=== PATIENT | female | born 1930 | race Caucasian/White ===

== ENCOUNTER 2019-01-28 14:50 | Emergency (ER) | payer OTHER ==
--- NOTE | 2019-01-28 16:02 | RAD REPORT ---
EXAM DESCRIPTION: RAD - Hip Left 2 View - 01/28/2019 3:52 pm CLINICAL HISTORY: Left hip pain FINDINGS: No fracture or dislocation is seen. Osteoporosis. 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
--- NOTE | 2019-01-28 16:07 | ER ---
Nurse's Notes [facility] Name: Talita Dean Age: 88 yrs Sex: Female : 1930 Arrival Date: 01/28/2019 Time: 14:52 Bed 20 Private MD: Diagnosis: Pain in left hip Presentation: 01/28 14:57 Presenting complaint: Patient states: Left hip pain after using push mower while mowing aj her yard 1 week ago. Also reports right hip pain after fall from standing after tripping. Transition of care: patient was not received from another setting of care. Onset of symptoms was January 22, 2019. Risk Assessment: Do you want to hurt yourself or someone else? Patient reports no desire to harm self or others. Initial Sepsis Screen: Does the patient meet any 2 criteria? No. Patient's initial sepsis screen is negative. Does the patient have a suspected source of infection? No. Patient's initial sepsis screen is negative. Care prior to arrival: None. 14:57 Method Of Arrival: Ambulatory 14:57 Acuity: ANNABEL 4 aj Triage Assessment: 14:59 General: Appears in no apparent distress. comfortable, Behavior is calm, cooperative, aj appropriate for age. Pain: Complains of pain in left hip. Neuro: Level of Consciousness is awake, alert, obeys commands, Oriented to person, place, time, situation, Appropriate for age. Respiratory: Airway is patent Respiratory effort is even, unlabored, Respiratory pattern is regular, symmetrical. Derm: Skin is intact, is healthy with good turgor, Skin is pink, warm \T\ dry. normal. Musculoskeletal: Reports pain in left hip. Historical: - Allergies: 14:59 No Known Allergies; aj - Immunization history:: Adult Immunizations up to date. - Social history:: Smoking status: Patient/guardian denies using tobacco. - Ebola Screening: : No symptoms or risks identified at this time. Screenin:15 Abuse screen: Denies threats or abuse. Denies injuries from another. Nutritional hb screening: No deficits noted. Tuberculosis screening: No symptoms or risk factors identified. Fall Risk None identified. Assessment: 15:15 General: Appears in no apparent distress. Behavior is calm, cooperative. Pain: Pain hb currently is 5 out of 10 on a pain scale. Neuro: Level of Consciousness is awake, alert, obeys commands, Oriented to person, place, time, situation. Cardiovascular: Capillary refill < 3 seconds Patient's skin is warm and dry. Respiratory: Airway is patent Respiratory effort is even, unlabored, Respiratory pattern is regular, symmetrical. GI: No signs and/or symptoms were reported involving the gastrointestinal system. : No signs and/or symptoms were reported regarding the genitourinary system. EENT: No signs and/or symptoms were reported regarding the EENT system. Derm: Skin is intact, is healthy with good turgor. Musculoskeletal: Reports left hip pain. Vital Signs: 14:59 BP 105 / 63; Pulse 85; Resp 19; Temp 98.8; Pulse Ox 98% on R/A; Weight 61.23 kg; Height aj 4 ft. 11 in. (149.86 cm); 14:59 Body Mass Index 27.27 (61.23 kg, 149.86 cm) aj ED Course: 14:52 Patient arrived in ED. as 14:59 Triage completed. aj 14:59 Arm band placed on right wrist. Patient placed in an exam room. aj 15:02 Elsa Barron FNP-C is PHCP. kb 15:02 Fortino Shrestha MD is Attending Physician. kb 15:15 Patient has correct armband on for positive identification. Bed in low position. Call hb light in reach. 15:22 Idania Renee, RN is Primary Nurse. hb 15:52 Hip Left 2 View XRAY In Process Unspecified. EDMS 16:15 No provider procedures requiring assistance completed. Patient did not have IV access hb during this emergency room visit. Administered Medications: No medications were administered Outcome: 16:06 Discharge ordered by . kb 16:15 Discharged to home ambulatory. hb 16:15 Condition: stable 16:15 Discharge instructions given to patient, Instructed on discharge instructions, follow up and referral plans. medication usage, Demonstrated understanding of instructions, follow-up care, medications, Prescriptions given X 1. 16:15 Patient left the ED. hb Signatures: Dispatcher [employer] EDMS Elsa Barron FNP-C FNP-Ckb Myers, Amanda, RN RN aj Martinez, Amelia as Idania Renee RN RN hb
--- NOTE | 2019-01-28 16:07 | EDPHYS ---
Physician Documentation [facility] Name: Talita Dean Age: 88 yrs Sex: Female : 1930 Arrival Date: 01/28/2019 Time: 14:52 Bed 20 Private MD: ED Physician Fortino Shrestha HPI: 01/28 15:18 This 88 yrs old Female presents to ER via Ambulatory with complaints of Hip kb Pain. 15:18 The patient or guardian reports pain. that occurred outdoors, sustained from "pulling a kb mower" There is no obvious deformity, The patient is able to self ambulate. The patient is able to bear their full body weight. The complaints affect the left hip. Onset: The symptoms/episode began/occurred 1 week(s) ago. Modifying factors: The symptoms are alleviated by nothing, the symptoms are aggravated by weight bearing. Associated signs and symptoms: Loss of consciousness: the patient experienced no loss of consciousness, Pertinent positives: None. Severity of symptoms: At their worst the symptoms were moderate, in the emergency department the symptoms are unchanged. The patient has not experienced similar symptoms in the past. The patient has not recently seen a physician. Pt reports left hip pain for a week after pulling on a heavy mower. States she has been able to walk, but has pain to posterior left hip. Historical: - Allergies: 14:59 No Known Allergies; aj - Immunization history:: Adult Immunizations up to date. - Social history:: Smoking status: Patient/guardian denies using tobacco. - Ebola Screening: : No symptoms or risks identified at this time. ROS: 15:16 Constitutional: Negative for fever, chills, and weight loss, Cardiovascular: Negative kb for chest pain, palpitations, and edema, Respiratory: Negative for shortness of breath, cough, wheezing, and pleuritic chest pain, Abdomen/GI: Negative for abdominal pain, nausea, vomiting, diarrhea, and constipation, Back: Negative for injury and pain, : Negative for injury, bleeding, discharge, and swelling, Skin: Negative for injury, rash, and discoloration, Neuro: Negative for headache, weakness, numbness, tingling, and seizure. 15:16 MS/extremity: Positive for pain, of the left hip. Exam: 15:16 Constitutional: This is a well developed, well nourished patient who is awake, alert, kb and in no acute distress. Head/Face: Normocephalic, atraumatic. Neck: Trachea midline, no thyromegaly or masses palpated, and no cervical lymphadenopathy. Supple, full range of motion without nuchal rigidity, or vertebral point tenderness. No Meningismus. Chest/axilla: Normal chest wall appearance and motion. Nontender with no deformity. No lesions are appreciated. Cardiovascular: Regular rate and rhythm with a normal S1 and S2. No gallops, murmurs, or rubs. Normal PMI, no JVD. No pulse deficits. Respiratory: Lungs have equal breath sounds bilaterally, clear to auscultation and percussion. No rales, rhonchi or wheezes noted. No increased work of breathing, no retractions or nasal flaring. Abdomen/GI: Soft, non-tender, with normal bowel sounds. No distension or tympany. No guarding or rebound. No evidence of tenderness throughout. Back: No spinal tenderness. No costovertebral tenderness. Full range of motion. Skin: Warm, dry with normal turgor. Normal color with no rashes, no lesions, and no evidence of cellulitis. Neuro: Awake and alert, GCS 15, oriented to person, place, time, and situation. Cranial nerves II-XII grossly intact. Motor strength 5/5 in all extremities. Sensory grossly intact. Cerebellar exam normal. Normal gait. 15:16 Musculoskeletal/extremity: Extremities: grossly normal except: noted in the left hip: pain, tenderness, ROM: intact in all extremities, Circulation is intact in all extremities. Sensation intact. Weight bearing: able to fully bear weight. Vital Signs: 14:59 BP 105 / 63; Pulse 85; Resp 19; Temp 98.8; Pulse Ox 98% on R/A; Weight 61.23 kg; Height aj 4 ft. 11 in. (149.86 cm); 14:59 Body Mass Index 27.27 (61.23 kg, 149.86 cm) aj MDM: 15:02 Patient medically screened. kb 15:16 Data reviewed: vital signs, nurses notes. Data interpreted: Pulse oximetry: on room air kb is 98 %. Interpretation: normal. Counseling: I had a detailed discussion with the patient and/or guardian regarding: the historical points, exam findings, and any diagnostic results supporting the discharge/admit diagnosis, radiology results, the need for outpatient follow up, a orthopedic surgeon, to return to the emergency department if symptoms worsen or persist or if there are any questions or concerns that arise at home. 01/28 15:10 Order name: Hip Left 2 View XRAY; Complete Time: 16:05 kb Administered Medications: No medications were administered Disposition: 01/29 09:11 Co-signature as Attending Physician, Fortino Shrestha MD I agree with the assessment and maral plan of care. Disposition: 01/28/19 16:06 Discharged to Home. Impression: Pain in left hip. - Condition is Stable. - Discharge Instructions: Hip Pain. - Prescriptions for Cyclobenzaprine 10 mg Oral Tablet - take 1 tablet by ORAL route every 8 hours As needed; 21 tablet. - Medication Reconciliation Form, Thank You Letter, Antibiotic Education, Prescription Opioid Use form. - Follow up: Emergency Department; When: As needed; Reason: Worsening of condition. Follow up: Private Physician; When: 2 - 3 days; Reason: Recheck today's complaints, Continuance of care, Re-evaluation by your physician. Signatures: Dispatcher [employer] EDElsa Corea, SECURITY DELIVERY SPECIALIST-C SECURITY DELIVERY SPECIALIST-CkMilly Lira, RN RN Fortino Smith MD MD cha Baxter, Heather, RN RN hb Corrections: (The following items were deleted from the chart) 01/28 16:15 16:06 01/28/2019 16:06 Discharged to Home. Impression: Pain in left hip. Condition is hb Stable. Forms are Medication Reconciliation Form, Thank You Letter, Antibiotic Education, Prescription Opioid Use. Follow up: Emergency Department; When: As needed; Reason: Worsening of condition. Follow up: Private Physician; When: 2 - 3 days; Reason: Recheck today's complaints, Continuance of care, Re-evaluation by your physician. kb
== END 2019-01-28 16:15 | disposition home or self-care (01) ==
LOC: ER 14:50
DX: M25.552 Pain in left hip (principal)
CPT/HCPCS: 99283

== ENCOUNTER 2019-05-24 10:37 | Emergency (ER) | payer OTHER ==
--- OUTSIDE RECORDS SUMMARY | 2019-05-24 10:39 | XMS REPORT ---
:1930 [facility] Address [address] [place] [address] [address] [place] [address] Care Team Providers Name Role Phone Unavailable Unavailable Unavailable Payers Payer Name Policy Type Policy Number Effective Date Expiration Date Problems This patient has no known problems. Allergies, Adverse Reactions, Alerts Allergy Allergy Status Severity Reaction(s) Onset Inactive Treating Comments Name Type Date Date Clinician No Known DA Active U 2018-05 Allergies -20 00:00:0 0 Medications This patient has no known medications.
--- OUTSIDE RECORDS SUMMARY | 2019-05-24 10:40 | XMS REPORT | Summary of Care ---
:1930 Author Organization [facility] Address [address] [place] [id number] Care Team Providers Name Role Phone Matt Glover MD Primary Care Provider Reason for Visit Reason Comments Insect Bite Dizziness light headed Encounter Details Date Type Department Care Team Description 02/09/2019 Office Visit [facility] Pediatric Matt Glover III, Essential hypertension (Primary Dx); and Adult Primary MD Insect bite, initial encounter; [address] History of myocardial infarction [address] [place] [address] , [address] [place] [address] [place] [phone] [id number] [phone] Allergies No Known Allergiesdocumented as of this encounter (statuses as of 02/09/2019) Medications Medication Sig Dispensed Refills Start End Date Status Date cyclobenzaprine 10 mg Take 1 0 Active tablet tablet by 9 mouth. irbesartan 300 mg tablet Take 1 30 tablet 11 Active tablet by 9 mouth daily. hydroCHLOROthiazide 12.5 Take 1 39 capsule 11 Active mg capsule capsule by 9 mouth daily. irbesartan 300 mg tablet Take 1 11 02/10/20 Discontinued tablet by 9 19 mouth daily. documented as of this encounter (statuses as of 02/09/2019) Active Problems Problem Noted Date Essential hypertension 02/09/2019 History of myocardial infarction 02/09/2019 documented as of this encounter (statuses as of 02/09/2019) Social History Tobacco Use Types Packs/Day Years Used Date Never Assessed Sex Assigned at Date Recorded Not on file Job Start Date Occupation Industry Not on file Not on file Not on file Travel History Travel Start Travel End No recent travel history available. documented as of this encounter Last Filed Vital Signs Vital Sign Reading Time Taken Comments Blood Pressure 163/85 02/09/2019 10:40 AM CDT Pulse 53 02/09/2019 10:39 AM CDT Temperature 36.2 C (97.2 F) 02/09/2019 10:39 AM CDT Respiratory Rate 18 02/09/2019 10:39 AM CDT Oxygen Saturation 99% 02/09/2019 10:39 AM CDT Inhaled Oxygen Concentration - - Weight 59.1 kg (130 lb 3.2 oz) 02/09/2019 10:39 AM CDT Height - - Body Mass Index - - documented in this encounter Progress Notes Matt Glover III, MD - 02/09/2019 10:00 AM CDT Cc: Chief Complaint Patient presents with Insect Bite Dizziness light headed Talita Dean is a 89 year old female. Rash Location: Leg Leg rash location: R leg and L leg Quality: itchiness and redness Severity: Moderate Onset quality: Sudden Duration: 1 day Timing: Constant Progression: Unchanged Chronicity: New Context comment: Dogs have been in her house Associated symptoms: no fever, no headaches and no joint pain Allergies Talita has No Known Allergies. Medications Outpatient Medications Prior to Visit Medication Sig Dispense Refill cyclobenzaprine 10 mg tablet Take 1 tablet by mouth. 0 irbesartan 300 mg tablet Take 1 tablet by mouth daily. 11 No facility-administered medications prior to visit. Histories History reviewed. No pertinent past medical history. History reviewed. No pertinent surgical history. Social History Socioeconomic History Marital status: Spouse name: Not on file Number of children: Not on file Years of education: Not on file Highest education level: Not on file Occupational History Not on file Social Needs Financial resource strain: Not on file Food insecurity: Worry: Not on file Inability: Not on file Transportation needs: Medical: Not on file Non-medical: Not on file Tobacco Use Smoking status: Not on file Substance and Sexual Activity Alcohol use: Not on file Drug use: Not on file Sexual activity: Not on file Lifestyle Physical activity: Days per week: Not on file Minutes per session: Not on file Stress: Not on file Relationships Social connections: Talks on phone: Not on file Gets together: Not on file Attends cheondoism service: Not on file Active member of club or organization: Not on file Attends meetings of clubs or organizations: Not on file Relationship status: Not on file Intimate partner violence: Fear of current or ex partner: Not on file Emotionally abused: Not on file Physically abused: Not on file Forced sexual activity: Not on file Other Topics Concern Not on file Social History Narrative Not on file History reviewed. No pertinent family history. Review of Systems Constitutional: Negative for fever. HENT: Negative for congestion. Respiratory: Negative for cough. Cardiovascular: Negative for leg swelling. Musculoskeletal: Negative for arthralgias. Skin: Positive for rash. Neurological: Negative for headaches. Psychiatric/Behavioral: Negative for dysphoric mood. Hematological: Negative for adenopathy. Does not bruise/bleed easily. Vital Signs BP (!) 163/85 | Pulse 53 | Temp 36.2 C (97.2 F) (Oral) | Resp 18 | Wt 130 lb 3.2 oz (59.1 kg) | SpO2 99% Physical Exam Constitutional: She appears well-nourished. No distress. Elderly female HENT: Head: Normocephalic. Mouth/Throat: Oropharynx is clear and moist. Eyes: Pupils are equal, round, and reactive to light. Cardiovascular: Normal rate. Pulmonary/Chest: Effort normal. Musculoskeletal: She exhibits no edema. Neurological: She is alert. Skin: Skin is dry. The back of both legs covered in small erythematous papules, not blistered, some in rows Psychiatric: She has a normal mood and affect. Vitals reviewed. Assessment/Plan 1. Essential hypertension, add hctz 2. Insect bite, initial encounter, no Rx Needed but needs pest control ,could be bed bugs, recheckif rash does not resolve 3. History of myocardial infarction, takes 81 mg asa documented in this encounter Plan of Treatment Health Maintenance Due Date Last Done Comments DTaP,Tdap,and Td Vaccines (1 - Tdap) 02/03/1951 Zoster Recombinant Vaccine (SHINGRIX) (1 of 2) 02/03/1982 Medicare Wellness Visit 02/03/1997 Osteoporosis Screening 02/03/1997 PNEUMOCOCCAL VACCINES 65+ (1 of 2 - PCV13) 02/03/1997 INFLUENZA VACCINE (#1) 2019 documented as of this encounter Results Not on filedocumented in this encounter Visit Diagnoses Diagnosis Essential hypertension - Primary Unspecified essential hypertension Insect bite, initial encounter History of myocardial infarction Old myocardial infarction documented in this encounter Insurance Payer Benefit Plan / Subscriber ID Effective Dates Phone Address Type Group JUDY KELLOGG [id number] 2018-Presen Medicare Adv PLUS PLUS CHOICE t HMO/POS documented as of this encounter"
--- OUTSIDE RECORDS SUMMARY | 2019-05-24 10:40 | XMS REPORT | Summary of Care ---
:1930 Author Organization [facility] Address [address] [place] [address] Care Team Providers Name Role Phone Matt Glover MD Primary Care Provider Reason for Visit Reason Comments Insect Bite Dizziness light headed Encounter Details Date Type Department Care Team Description 02/09/2019 Office Visit [facility] Pediatric Matt Glover III, Essential hypertension (Primary Dx); and Adult Primary MD Insect bite, initial encounter; [address] History of myocardial infarction [address] [place] [address] , [address] [place] [address] [place] [phone] Allergies No Known Allergiesdocumented as of this [...] file Gets together: Not on file Attends protestant service: Not on file Active member of [...] Dates Phone Address Type Group JUDY KELLOGG [id number] 2018-Presen Medicare Adv PLUS PLUS CHOICE t HMO/POS documented as of this encounter"
--- OUTSIDE RECORDS SUMMARY | 2019-05-24 10:40 | XMS REPORT | Summary of Care ---
:1930 Author Name COLIN LAM M.D. Address Unavailable Unavailable , Care Team Providers Name Role Phone COLIN LAM M.D. 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 Medications Name Dates Details Medications not documented Allergies and Adverse Reactions Name Dates Details Allergy history not documented Status: Procedures Procedure Dates Details Procedures not documented Immunization Name Dates Details Immunizations not documented Social History Name Dates Details Unknown if ever smoked Vital Signs Date Test Result Details No Known Vitals to report Results Date Description Value Details Results not documented Plan of Care Name Dates Details Planned Observations Planned Goals not documented Interventions Provided Plan88 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 On: 20-Aug-2018 13:30 Encounter Diagnosis: Problem not documented
[2019-05-24 12:02] LABS: Absolute Lymphocytes (CBC) 0.8 K/uL (0.7-4.9); Basophils % 1.1 % (0-1.3); Hematocrit 40.7 % (36.0-45.0); Lymphocytes % 23.2 % (15.3-44.8); RBC Red Blood Cell Count 4.31 M/uL (3.86-4.86)
[2019-05-24 12:03] LABS: Protime INR 1.02
[2019-05-24 12:16] LABS: Albumin 3.4 g/dL (3.4-5.0); Bilirubin Direct 0.2 mg/dL (0-0.2); Bilirubin Total 0.8 mg/dL (0.2-1.0); Potassium 4.1 mmol/L (3.5-5.1); Protein, Total 7.2 g/dL (6.4-8.2)
--- NOTE | 2019-05-24 12:42 | RAD REPORT ---
EXAM DESCRIPTION: CTAbdomen Pelvis W Contrast - 05/24/2019 12:32 pm CLINICAL HISTORY: Abdominal pain. GI BLEED COMPARISON: No comparisons TECHNIQUE: Biphasic CT imaging of the abdomen and pelvis was performed with 100 ml non-ionic IV cont rast. All CT scans are performed using dose optimization technique as appropriate and may include automated exposure control or mA/KV adjustment according to patient size. FINDINGS: Small calcified granuloma is present right lung base anteriorly. The liver demonstrates no masses or biliary dilatation. Cholelithiasis. The spleen pancreas, adrenal glands are normal. Large left renal cyst measuring 5.6 cm. 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 No bowel obstruction, free air, free fluid or abscess. Sigmoid diverticulosis without diverticulitis. Appendectomy. Aortic atherosclerosis. No evidence of significant lymphadenopathy. No lumbar degenerative changes. IMPRESSION: Cholelithiasis.
--- NOTE | 2019-05-24 14:51 | EDPHYS ---
Physician Documentation [facility] Name: Talita Dean Age: 89 yrs Sex: Female : 1930 Arrival Date: 05/24/2019 Time: 10:39 Bed 6 Private MD: ED Physician Bolivar Palacios HPI: 05/24 11:35 This 89 yrs old Female presents to ER via Ambulatory with complaints of pm1 Black/Tarry Stools, Cold Symptoms, Took Heartworm Medication. 11:35 The patient presents to the emergency department black stool. Cough on and off for the pm1 past three months. Accidentally took two pills of Black Plaquemine supplement that she gives to her dog for heart worm this AM. Onset: The symptoms/episode began/occurred Black stool for 3 days. Abdominal pain: none is appreciated. Modifying factors: The symptoms are alleviated by nothing, the symptoms are aggravated by nothing. Associated signs and symptoms: Pertinent negatives: chest pain, constipation, dizziness at rest, dizziness when standing, fever, shortness of breath, vomiting. The patient has not experienced similar symptoms in the past. The patient has not recently seen a physician. Historical: - Allergies: 11:00 No Known Allergies; aj1 - Home Meds: 12:08 irbesartan 300 mg oral tab 1 tab once daily [Active]; Aspirin Childrens 81 mg oral chew ca1 1 tab once daily [Active]; - PMHx: 11:00 Myocardial infarction; Hypertension; aj1 - Immunization history:: Flu vaccine is not up to date. - Social history:: Smoking status: Patient/guardian denies using tobacco. - Ebola Screening: : Patient denies travel to an Ebola-affected area in the 21 days before illness onset. ROS: 11:35 Constitutional: Negative for fever, chills, and weight loss, Eyes: Negative for injury, pm1 pain, redness, and discharge, ENT: Negative for injury, pain, and discharge, Neck: Negative for injury, pain, and swelling, Cardiovascular: Negative for chest pain, palpitations, and edema. 11:35 Back: Negative for injury and pain, : Negative for injury, bleeding, discharge, and swelling, MS/Extremity: Negative for injury and deformity, Skin: Negative for injury, rash, and discoloration, Neuro: Negative for headache, weakness, numbness, tingling, and seizure. 11:35 Respiratory: Positive for cough, Negative for shortness of breath, sputum production, wheezing. 11:35 Abdomen/GI: Positive for diarrhea, black/tarry stool, Negative for abdominal pain, nausea and vomiting, constipation. Exam: 12:50 Constitutional: This is a well developed, well nourished patient who is awake, alert, pm1 and in no acute distress. Head/Face: Normocephalic, atraumatic. Eyes: Pupils equal round and reactive to light, extra-ocular motions intact. Lids and lashes normal. Conjunctiva and sclera are non-icteric and not injected. Cornea within normal limits. Periorbital areas with no swelling, redness, or edema. ENT: Nares patent. No nasal discharge, no septal abnormalities noted. Tympanic membranes are normal and external auditory canals are clear. Oropharynx with no redness, swelling, or masses, exudates, or evidence of obstruction, uvula midline. Mucous membranes moist. Neck: Trachea midline, no thyromegaly or masses palpated, and no cervical lymphadenopathy. Supple, full range of motion without nuchal rigidity, or vertebral point tenderness. No Meningismus. Chest/axilla: Normal chest wall appearance and motion. Nontender with no deformity. No lesions are appreciated. Cardiovascular: Regular rate and rhythm with a normal S1 and S2. No gallops, murmurs, or rubs. No pulse deficits. Respiratory: Lungs have equal breath sounds bilaterally, clear to auscultation and percussion. No rales, rhonchi or wheezes noted. No increased work of breathing, no retractions or nasal flaring. 12:50 Back: No spinal tenderness. No costovertebral tenderness. Full range of motion. Skin: Warm, dry with normal turgor. Normal color with no rashes, no lesions, and no evidence of cellulitis. 12:50 MS/ Extremity: Pulses equal, no cyanosis. Neurovascular intact. Full, normal range of motion. 12:50 Abdomen/GI: Inspection: abdomen appears normal, Bowel sounds: normal, Palpation: abdomen is soft and non-tender, in all quadrants, mass, is not appreciated, rebound tenderness, is not appreciated, Rectal exam: rectal tone normal, Stool: brown, guaiac negative, hemorrhoid(s), are not appreciated, tenderness, is not appreciated, Irrigation Equipment Remover: Wlila LANG. 12:50 Neuro: Orientation: is normal, Motor: is normal, moves all fours, Gait: is steady, at a normal pace, without difficulty. Vital Signs: 11:00 BP 161 / 79; Pulse 76; Resp 18; Temp 97.9; Pulse Ox 97% on R/A; Weight 61.23 kg (R); aj1 Height 4 ft. 11 in. (149.86 cm) (R); Pain 3/10; 11:55 BP 167 / 72; Pulse 67; Resp 16 S; Pulse Ox 97% on R/A; ca1 13:05 BP 164 / 101; Pulse 73; Resp 17 S; Pulse Ox 98% on R/A; ca1 13:23 BP 137 / 81; Pulse 68; Resp 15 S; Pulse Ox 98% on R/A; ca1 14:37 BP 172 / 74; Pulse 71; Resp 17 S; Pulse Ox 98% on R/A; ca1 11:00 Body Mass Index 27.27 (61.23 kg, 149.86 cm) aj1 MDM: 11:32 Patient medically screened. pm1 14:48 Data reviewed: vital signs. Data interpreted: Pulse oximetry: on room air is 98 %. pm1 Interpretation: normal. Counseling: I had a detailed discussion with the patient and/or guardian regarding: the historical points, exam findings, and any diagnostic results supporting the discharge/admit diagnosis, lab results, radiology results, the need for outpatient follow up, to return to the emergency department if symptoms worsen or persist or if there are any questions or concerns that arise at home. 14:48 ED course: Patient without any bowel movement in the ER. Stool guaiac negative in the pm1 ER. Patient v/s and CBC WNLs. No GI bleed present therefore will discharge the patient home to follow up with PCP. 05/24 11:33 Order name: Basic Metabolic Panel; Complete Time: 12:50 pm1 05/24 11:33 Order name: CBC with Diff; Complete Time: 12:50 pm1 05/24 11:33 Order name: Creatinine for Radiology; Complete Time: 12:50 pm1 05/24 11:33 Order name: Hepatic Function; Complete Time: 12:50 pm1 05/24 11:33 Order name: Lipase; Complete Time: 12:50 pm1 05/24 11:33 Order name: Type And Screen; Complete Time: 12:50 pm1 05/24 11:33 Order name: IV Saline Lock; Complete Time: 11:52 pm1 05/24 11:33 Order name: Labs collected and sent; Complete Time: 11:52 pm1 12 11:33 Order name: PT-INR; Complete Time: 12:50 pm1 05/24 11:33 Order name: CT Abd/Pelvis - IV Contrast Only; Complete Time: 12:50 pm1 05/24 12:15 Order name: Occult Blood--Ancillary; Complete Time: 12:50 eb Administered Medications: No medications were administered Disposition: 17:50 Co-signature as Attending Physician, Bolivar Palacios MD Did not see or evaluate the ps1 patient. Signing the chart for administrative purposes. Not an endorsement of care provided. . Disposition: 05/24/19 14:50 Discharged to Home. Impression: Intra-abdominal and pelvic swelling, mass and lump, unspecified site - Right kidney, Acute upper respiratory infection, unspecified, Diarrhea, unspecified. - Condition is Stable. - Discharge Instructions: Food Choices to Help Relieve Diarrhea, Adult, Diarrhea, Adult, Upper Respiratory Infection, Adult. - Prescriptions for Tessalon Perles 100 mg Oral Capsule - take 1 capsule by ORAL route every 8 hours As needed; 15 capsule. - Medication Reconciliation Form, Thank You Letter, Antibiotic Education, Prescription Opioid Use form. - Follow up: Emergency Department; When: As needed; Reason: Worsening of condition. Follow up: Private Physician; When: 2 - 3 days; Reason: Recheck today's complaints, Continuance of care, Re-evaluation by your physician. - Problem is new. - Symptoms have improved. Signatures: Dispatcher [employer] Carito Choudhary RN RN aj1 Scott Kim, PUBLIC HEALTH SANITARIAN PUBLIC HEALTH SANITARIAN pm1 Bolivar Palacios MD MD ps1 Willa Betancourt RN RN ca1 Corrections: (The following items were deleted from the chart) 14:51 14:50 05/24/2019 14:50 Discharged to Home. Impression: Intra-abdominal and pelvic pm1 swelling, mass and lump, unspecified site - Right kidneyAcute upper respiratory infection, unspecified. Condition is Stable. Forms are Medication Reconciliation Form, Thank You Letter, Antibiotic Education, Prescription Opioid Use. Follow up: Emergency Department; When: As needed; Reason: Worsening of condition. Follow up: Private Physician; When: 2 - 3 days; Reason: Recheck today's complaints, Continuance of care, Re-evaluation by your physician. Problem is new. Symptoms have improved. pm1 15:04 14:51 05/24/2019 14:50 Discharged to Home. Impression: Intra-abdominal and pelvic ca1 swelling, mass and lump, unspecified site - Right kidneyAcute upper respiratory infection, unspecified; Diarrhea, unspecified. Condition is Stable. Forms are Medication Reconciliation Form, Thank You Letter, Antibiotic Education, Prescription Opioid Use. Follow up: Emergency Department; When: As needed; Reason: Worsening of condition. Follow up: Private Physician; When: 2 - 3 days; Reason: Recheck today's complaints, Continuance of care, Re-evaluation by your physician. Problem is new. Symptoms have improved. pm1
--- NOTE | 2019-05-24 14:51 | ER ---
Nurse's Notes [facility] Name: Talita Dean Age: 89 yrs Sex: Female : 1930 Arrival Date: 05/24/2019 Time: 10:39 Bed 6 Private MD: Diagnosis: Acute upper respiratory infection, unspecified;Intra-abdominal and pelvic swelling, mass and lump, unspecified site-Right kidney;Diarrhea, unspecified Presentation: 05/24 10:57 Presenting complaint: Patient states: "I've been sick on and off for 2 to 3 months, I aj1 got a cold and yesterday I shit black goo, and last night there was more black stool. When I wake up in the morning I'm kind of dizzy, last night I accidentally took my dog's medicine" Patient also reports cough, congestion, fever. Transition of care: patient was not received from another setting of care. Onset of symptoms was 2018. Risk Assessment: Do you want to hurt yourself or someone else? Patient reports no desire to harm self or others. Initial Sepsis Screen: Does the patient meet any 2 criteria? No. Patient's initial sepsis screen is negative. Does the patient have a suspected source of infection? No. Patient's initial sepsis screen is negative. Care prior to arrival: None. 10:57 Method Of Arrival: Ambulatory aj1 10:57 Acuity: ANNABEL 3 aj1 Triage Assessment: 11:00 General: Appears in no apparent distress. comfortable, Behavior is calm, cooperative, aj1 appropriate for age. Pain: Pain currently is 3 out of 10 on a pain scale. Neuro: Level of Consciousness is awake, alert, obeys commands. Cardiovascular: Patient's skin is warm and dry. Respiratory: Airway is patent Respiratory effort is even, unlabored, Respiratory pattern is regular, symmetrical. Historical: - Allergies: 11:00 No Known Allergies; aj1 - Home Meds: 12:08 irbesartan 300 mg oral tab 1 tab once daily [Active]; Aspirin Childrens 81 mg oral chew ca1 1 tab once daily [Active]; - PMHx: 11:00 Myocardial infarction; Hypertension; aj1 - Immunization history:: Flu vaccine is not up to date. - Social history:: Smoking status: Patient/guardian denies using tobacco. - Ebola Screening: : Patient denies travel to an Ebola-affected area in the 21 days before illness onset. Screenin:10 Abuse screen: Denies threats or abuse. Denies injuries from another. Nutritional ca1 screening: No deficits noted. Tuberculosis screening: No symptoms or risk factors identified. Fall Risk IV access (20 points). Assessment: 11:10 General: Appears in no apparent distress. comfortable, Behavior is calm, cooperative, ca1 appropriate for age. Pain: Denies pain. Neuro: Level of Consciousness is awake, alert, obeys commands, Oriented to person, place, time, situation. Cardiovascular: Heart tones S1 S2 present Capillary refill < 3 seconds Patient's skin is warm and dry. Pulses are all present. Respiratory: Airway is patent Respiratory effort is even, unlabored, Respiratory pattern is regular, symmetrical, Breath sounds are clear bilaterally. GI: Abdomen is flat, non-distended, Bowel sounds present X 4 quads. Abd is soft and non tender X 4 quads. Reports diarrhea, since yesterday black stools since 2 days ago. : No deficits noted. No signs and/or symptoms were reported regarding the genitourinary system. EENT: No deficits noted. No signs and/or symptoms were reported regarding the EENT system. Derm: Skin is intact, is healthy with good turgor, Skin is pink, warm \\T\\ dry. Musculoskeletal: Circulation, motion, and sensation intact. Capillary refill < 3 seconds, Range of motion: intact in all extremities. 11:55 Reassessment: Patient appears in no apparent distress at this time. Patient and/or ca1 family updated on plan of care and expected duration. Pain level reassessed. Patient is alert, oriented x 3, equal unlabored respirations, skin warm/dry/pink. 12:04 Reassessment: Called Poison Control. Spoke to Paul from [facility]. No interaction between Black [place] and Irbesartan. Black walnut may cause sensitivity to pt, other than that no possible adverse effects to ingestion. Notified provider. 13:01 Reassessment: Patient appears in no apparent distress at this time. Patient is alert, ca1 oriented x 3, equal unlabored respirations, skin warm/dry/pink. 14:00 Reassessment: Patient appears in no apparent distress at this time. Patient is alert, ca1 oriented x 3, equal unlabored respirations, skin warm/dry/pink. 15:00 Reassessment: Patient appears in no apparent distress at this time. Patient is alert, ca1 oriented x 3, equal unlabored respirations, skin warm/dry/pink. Vital Signs: 11:00 BP 161 / 79; Pulse 76; Resp 18; Temp 97.9; Pulse Ox 97% on R/A; Weight 61.23 kg (R); aj1 Height 4 ft. 11 in. (149.86 cm) (R); Pain 3/10; 11:55 BP 167 / 72; Pulse 67; Resp 16 S; Pulse Ox 97% on R/A; ca1 13:05 BP 164 / 101; Pulse 73; Resp 17 S; Pulse Ox 98% on R/A; ca1 13:23 BP 137 / 81; Pulse 68; Resp 15 S; Pulse Ox 98% on R/A; ca1 14:37 BP 172 / 74; Pulse 71; Resp 17 S; Pulse Ox 98% on R/A; ca1 11:00 Body Mass Index 27.27 (61.23 kg, 149.86 cm) aj ED Course: 10:39 Patient arrived in ED. as 11:00 Triage completed. aj1 11:00 Arm band placed on Patient placed in an exam room. aj1 11:06 Willa Betancourt, RICKEY is Primary Nurse. ca1 11:08 Scott Kim NP is PHCP. pm1 11:08 Bolivar Palacios MD is Attending Physician. pm1 11:10 Patient has correct armband on for positive identification. Placed in gown. Bed in low ca1 position. Call light in reach. Side rails up X 1. Pulse ox on. NIBP on. Warm blanket given. 11:40 Radiology exam delayed due to lab results not completed at this time. (BUN/Creatinine). mw3 11:48 No provider procedures requiring assistance completed. Initial lab(s) drawn, by tx, ca1 sent to lab. Inserted saline lock: 20 gauge in right antecubital area, using aseptic technique. Blood collected. 12:32 CT completed. Patient tolerated procedure well. Patient moved back from CT. mi 12:32 CT Abd/Pelvis - IV Contrast Only In Process Unspecified. EDMS 14:37 Patient admitted, IV remains in place. ca1 Administered Medications: No medications were administered Outcome: 14:50 Discharge ordered by . pm1 15:03 Discharged to home ambulatory. ca1 15:03 Condition: stable 15:03 Discharge instructions given to patient, Instructed on discharge instructions, follow up and referral plans. medication usage, Demonstrated understanding of instructions, follow-up care, medications, Prescriptions given X 1. 15:04 Patient left the ED. ca1 Signatures: Dispatcher [employer] EDMS Carito Bro RN RN aj1 Rosa Sandhu Patrick, KEYUR SAP BPC ARCHITECT pm1 Ariel Mattson Michelle mw3 Willa Betancourt RN RN ca1
[2019-05-24 15:57] VITALS: TEMP 97.9
[2019-05-24 16:00] VITALS: O2SAT 98
[2019-05-24 16:03] VITALS: BP 172/74
== END 2019-05-24 15:04 | disposition home or self-care (01) ==
LOC: ER 10:37
DX: J06.9 Acute upper respiratory infection, unspecified (principal); R19.00 Intra-abdominal and pelvic swelling, mass and lump, unspecified site; R19.7 Diarrhea, unspecified; I10 Essential (primary) hypertension
CPT/HCPCS: 85025; 80048; 36415; 86900; 86850; 85610; 86901; 80076; 82272; 83690; 74177; 99284; Q9967

== ENCOUNTER 2019-07-13 22:07 | Emergency (ER) | payer OTHER ==
--- OUTSIDE RECORDS SUMMARY | 2019-07-13 22:10 | XMS REPORT ---
:1930 [facility] Address [address] [place] [address] [address]. [address] [place] [address] Care Team Providers Name Role Phone Unavailable [...]
[2019-07-13] MEDS ORDERED: METOPROLOL TAR 50 MG TAB ONE (23:06)
[2019-07-13] MEDS ORDERED: NA CHLORIDE 0.9% 1,000 ML ONE (23:06)
[2019-07-13 23:10] LABS: Absolute Lymphocytes (CBC) 1.1 K/uL (0.7-4.9); Basophils % 0.9 % (0-1.3); Hematocrit 39.3 % (36.0-45.0); Lymphocytes % 28.4 % (15.3-44.8); MPV 7.9 fL (7.6-11.3); RBC Red Blood Cell Count 4.22 M/uL (3.86-4.86)
[2019-07-13 23:21] LABS: Protime INR 0.98
[2019-07-13 23:54] LABS: ALT/SGPT 22 U/L (12-78); AST/SGOT 18 U/L (15-37); Albumin 3.3 g/dL (3.4-5.0); Alkaline Phosphatase 83 U/L (45-117); BUN Blood Urea Nitrogen 14 mg/dL (7-18); Bicarbonate 24 mmol/L (21-32); Bilirubin Direct < 0.1 mg/dL (0-0.2); Bilirubin Total 0.3 mg/dL (0.2-1.0); Glucose Level 101 mg/dL (74-106); Magnesium 2.3 mg/dL (1.8-2.4); NT PRO-BNP 132 pg/mL (<450); Potassium 4.7 mmol/L (3.5-5.1); Protein, Total 6.7 g/dL (6.4-8.2); Sodium Level 141 mmol/L (136-145); Troponin (Emerg Dept Use Only) < 0.02 ng/mL (0.0-0.045)
--- NOTE | 2019-07-14 00:02 | ER ---
Nurse's Notes [facility] Name: Talita Dean Age: 89 yrs Sex: Female : 1930 Arrival Date: 07/13/2019 Time: 22:11 Bed 16 Private MD: Out, [facility] Diagnosis: Essential (primary) hypertension;Palpitations Presentation: 07/13 22:29 Presenting complaint: Patient states: C/O palpitations and feels like her heart was wh racing. Pt also C/O high blood pressure she took at home around 21:00 was BP 164/80 and HR 111. Pt denies chest pain. Pt states Hx of heart attack in 2012. Transition of care: patient was not received from another setting of care. Onset of symptoms was July 13, 2019. Risk Assessment: Do you want to hurt yourself or someone else? Patient reports no desire to harm self or others. Initial Sepsis Screen: Does the patient meet any 2 criteria? No. Patient's initial sepsis screen is negative. Does the patient have a suspected source of infection? No. Patient's initial sepsis screen is negative. Care prior to arrival: None. 22:29 Method Of Arrival: Ambulatory 22:29 Acuity: ANNABEL 3 Historical: - Allergies: 22:32 No Known Allergies; - Home Meds: 22:32 irbesartan 300 mg Oral tab 1 tab once daily [Active]; Aspirin Childrens 81 mg Oral chew wh 1 tab once daily [Active]; - PMHx: 22:32 Hypertension; Myocardial infarction; - PSHx: 22:32 Hysterectomy; - Immunization history:: Adult Immunizations up to date. - Social history:: Smoking status: Patient/guardian denies using. - Ebola Screening: : Patient negative for fever greater than or equal to 101.5 degrees Fahrenheit, and additional compatible Ebola Virus Disease symptoms Patient denies exposure to infectious person. Screenin:36 Abuse screen: Denies threats or abuse. Denies injuries from another. Nutritional screening: No deficits noted. Tuberculosis screening: No symptoms or risk factors identified. Fall Risk None identified. Assessment: 22:36 General: Appears in no apparent distress. Behavior is calm, cooperative, appropriate wh for age. Pain: Denies pain. Neuro: Level of Consciousness is awake, alert, obeys commands, Oriented to person, place, time, situation, Appropriate for age. Cardiovascular: Reports palpitations, Heart tones S1 S2 Rhythm is regular. Respiratory: Airway is patent Respiratory effort is even, unlabored, Respiratory pattern is regular, symmetrical, Breath sounds are clear bilaterally. GI: Abdomen is flat, non-distended. : No signs and/or symptoms were reported regarding the genitourinary system. EENT: No signs and/or symptoms were reported regarding the EENT system. Derm: Skin is intact, is healthy with good turgor, Skin is pink, warm \T\ dry. normal. Musculoskeletal: Circulation, motion, and sensation intact. 07/14 00:24 Reassessment: Patient appears in no apparent distress at this time. No changes from previously documented assessment. Patient and/or family updated on plan of care and expected duration. Pain level reassessed. Patient is alert, oriented x 3, equal unlabored respirations, skin warm/dry/pink. Patient denies pain at this time. Vital Signs: 07/13 22:30 BP 182 / 93; Pulse 75; Resp 20; Temp 98; Pulse Ox 98% ; Weight 61.23 kg; Height 4 ft. 11 in. (149.86 cm); 23:30 BP 157 / 102; Pulse 67; Resp 18; Pulse Ox 100% ; 07/14 00:15 BP 151 / 84; Pulse 66; Resp 18; Pulse Ox 99% ; 07/13 22:30 Body Mass Index 27.27 (61.23 kg, 149.86 cm) ED Course: 07/13 22:11 Patient arrived in ED. es 22:13 Out, [facility] is Private Physician. es 22:18 Adriane Evangelista is Primary Nurse. 22:30 Triage completed. 22:37 Arm band placed on right wrist. 22:37 Patient has correct armband on for positive identification. Placed in gown. Bed in low wh position. Call light in reach. Side rails up X 1. bus monitor on. Pulse ox on. NIBP on. 22:50 Fortino Shrestha MD is Attending Physician. [facility] 23:05 Inserted saline lock: 20 gauge in left forearm, using aseptic technique. Blood mt collected. 23:11 XRAY Chest (1 view) In Process Unspecified. EDMS 07/14 00:01 Tyrone Sheffield MD is Referral Physician. [facility] 00:25 No provider procedures requiring assistance completed. IV discontinued, intact, bleeding controlled, No redness/swelling at site. Administered Medications: 07/13 23: Drug: NS 0.9% 1000 ml Route: IV; Rate: 125 ml/hr; Site: left antecubital; 07/14 00:03 Follow up: Response: No adverse reaction; IV Status: Order to discontinue infusion 07/13 23: Drug: Lopressor (metoprolol TARTRATE) 50 mg Route: PO; 07/14 00:04 Follow up: Response: No adverse reaction; Blood pressure is lowered : Drug: Aspirin Chewable Tablet 162 mg Route: PO; : Follow up: Response: No adverse reaction Outcome: 00:01 Discharge ordered by . [facility] 00: Discharged to home ambulatory. : Condition: stable 00:26 Discharge instructions given to patient, Instructed on discharge instructions, follow up and referral plans. medication usage, POC Demonstrated understanding of instructions, follow-up care, medications, POC Prescriptions given X 2. 00:26 Patient left the ED. Signatures: Dispatcher [employer] Fortino Vargas MD MD cha Salyer, Abby Flaherty mt, Winsy
--- NOTE | 2019-07-14 00:02 | EDPHYS ---
Physician Documentation [facility] Name: Talita Dean Age: 89 yrs Sex: Female : 1930 Arrival Date: 07/13/2019 Time: 22:11 Bed 16 Private MD: Out, [facility] ED Physician Fortino Shrestha HPI: 07/13 22:56 This 89 yrs old Female presents to ER via Ambulatory with complaints of heart maral problems, High Blood Pressure, Palpitations. 22:56 The patient has elevated blood pressure and discovered this at home. Onset: The maral symptoms/episode began/occurred just prior to arrival, today. Modifying factors: The symptoms are aggravated by activity, The symptoms are alleviated by remaining still. Associated signs and symptoms: The patient has no apparent associated signs or symptoms. Severity of symptoms: At its worst the blood pressure was mild, in the emergency department the blood pressure is unchanged. The patient has experienced similar episodes in the past, a few times. Historical: - Allergies: 22:32 No Known Allergies; wh - Home Meds: 22:32 irbesartan 300 mg Oral tab 1 tab once daily [Active]; Aspirin Childrens 81 mg Oral chew wh 1 tab once daily [Active]; - PMHx: 22:32 Hypertension; Myocardial infarction; wh - PSHx: 22:32 Hysterectomy; wh - Immunization history:: Adult Immunizations up to date. - Social history:: Smoking status: Patient/guardian denies using. - Ebola Screening: : Patient negative for fever greater than or equal to 101.5 degrees Fahrenheit, and additional compatible Ebola Virus Disease symptoms Patient denies exposure to infectious person. ROS: 22:57 Constitutional: Negative for fever, chills, and weight loss, Eyes: Negative for injury, maral pain, redness, and discharge, ENT: Negative for injury, pain, and discharge, Neck: Negative for injury, pain, and swelling, Respiratory: Negative for shortness of breath, cough, wheezing, and pleuritic chest pain, Abdomen/GI: Negative for abdominal pain, nausea, vomiting, diarrhea, and constipation, Back: Negative for injury and pain, : Negative for injury, bleeding, discharge, and swelling, MS/Extremity: Negative for injury and deformity, Skin: Negative for injury, rash, and discoloration, Neuro: Negative for headache, weakness, numbness, tingling, and seizure, Psych: Negative for depression, anxiety, suicide ideation, homicidal ideation, and hallucinations, Allergy/Immunology: Negative for hives, rash, and allergies, Endocrine: Negative for neck swelling, polydipsia, polyuria, polyphagia, and marked weight changes, Hematologic/Lymphatic: Negative for swollen nodes, abnormal bleeding, and unusual bruising. 22:57 Cardiovascular: Positive for palpitations. Exam: 22:57 Constitutional: This is a well developed, well nourished patient who is awake, alert, maral and in no acute distress. Head/Face: Normocephalic, atraumatic. Eyes: Pupils equal round and reactive to light, extra-ocular motions intact. Lids and lashes normal. Conjunctiva and sclera are non-icteric and not injected. Cornea within normal limits. Periorbital areas with no swelling, redness, or edema. ENT: Nares patent. No nasal discharge, no septal abnormalities noted. Tympanic membranes are normal and external auditory canals are clear. Oropharynx with no redness, swelling, or masses, exudates, or evidence of obstruction, uvula midline. Mucous membranes moist. Neck: Trachea midline, no thyromegaly or masses palpated, and no cervical lymphadenopathy. Supple, full range of motion without nuchal rigidity, or vertebral point tenderness. No Meningismus. Chest/axilla: Normal chest wall appearance and motion. Nontender with no deformity. No lesions are appreciated. Respiratory: Lungs have equal breath sounds bilaterally, clear to auscultation and percussion. No rales, rhonchi or wheezes noted. No increased work of breathing, no retractions or nasal flaring. Abdomen/GI: Soft, non-tender, with normal bowel sounds. No distension or tympany. No guarding or rebound. No evidence of tenderness throughout. Back: No spinal tenderness. No costovertebral tenderness. Full range of motion. Female : Normal external genitalia. Skin: Warm, dry with normal turgor. Normal color with no rashes, no lesions, and no evidence of cellulitis. MS/ Extremity: Pulses equal, no cyanosis. Neurovascular intact. Full, normal range of motion. Neuro: Awake and alert, GCS 15, oriented to person, place, time, and situation. Cranial nerves II-XII grossly intact. Motor strength 5/5 in all extremities. Sensory grossly intact. Cerebellar exam normal. Normal gait. Psych: Awake, alert, with orientation to person, place and time. Behavior, mood, and affect are within normal limits. 22:57 Cardiovascular: Rate: normal, Rhythm: regular, Pulses: no pulse deficits are appreciated, Heart sounds: normal, Edema: is not appreciated, JVD: is not appreciated. Vital Signs: 22:30 BP 182 / 93; Pulse 75; Resp 20; Temp 98; Pulse Ox 98% ; Weight 61.23 kg; Height 4 ft. 11 in. (149.86 cm); 23:30 BP 157 / 102; Pulse 67; Resp 18; Pulse Ox 100% ; 07/14 00:15 BP 151 / 84; Pulse 66; Resp 18; Pulse Ox 99% ; 07/13 22:30 Body Mass Index 27.27 (61.23 kg, 149.86 cm) MDM: 07/13 22:50 Patient medically screened. [facility] 22:59 Data reviewed: vital signs, nurses notes, lab test result(s), EKG, radiologic studies, [facility] CT scan, plain films. 07/13 22:55 Order name: Basic Metabolic Panel [facility] 07/13 22:55 Order name: CBC with Diff; Complete Time: 00:00 [facility] 07/13 22:55 Order name: LFT's [facility] 07/13 22:55 Order name: Magnesium [facility] 07/13 22:55 Order name: NT PRO-BNP [facility] 07/13 22:55 Order name: PT-INR; Complete Time: 00:00 [facility] 07/13 22:55 Order name: Troponin (emerg Dept Use Only) [facility] 07/13 22:55 Order name: XRAY Chest (1 view) [facility] 07/13 22:55 Order name: TSH [facility] 07/13 22:56 Order name: Urine Culture [facility] 07/13 23:35 Order name: Urine Dipstick--Ancillary (enter results) mw2 07/13 23:55 Order name: T4 Free EDAZ 07/13 22:55 Order name: EKG; Complete Time: 22:57 [facility] 07/13 22:55 Order name: Cardiac monitoring; Complete Time: 23:06 [facility] 07/13 22:55 Order name: EKG - Nurse/Tech; Complete Time: 23:06 [facility] 07/13 22:55 Order name: IV Saline Lock; Complete Time: 23:06 [facility] 07/13 22:55 Order name: Labs collected and sent; Complete Time: 23:06 [facility] 07/13 22:55 Order name: O2 Per Protocol; Complete Time: 23:06 [facility] 07/13 22:55 Order name: O2 Sat Monitoring; Complete Time: 23:06 [facility] 07/13 22:56 Order name: Urine Dipstick-Ancillary (obtain specimen); Complete Time: 23:33 [facility] Administered Medications: 23: Drug: NS 0.9% 1000 ml Route: IV; Rate: 125 ml/hr; Site: left antecubital; 07/14 00:03 Follow up: Response: No adverse reaction; IV Status: Order to discontinue infusion 07/13 23:20 Drug: Lopressor (metoprolol TARTRATE) 50 mg Route: PO; 07/14 00:04 Follow up: Response: No adverse reaction; Blood pressure is lowered : Drug: Aspirin Chewable Tablet 162 mg Route: PO; 00:25 Follow up: Response: No adverse reaction Disposition: 07/14/19 00:01 Discharged to Home. Impression: Essential (primary) hypertension, Palpitations. - Condition is Stable. - Discharge Instructions: Hypertension, Palpitations, Hypertension, Llht-ro-Casu, How to Take Your Blood Pressure, Brmp-yt-Piqf, Aspirin and Your Heart, Palpitations, Mhmj-fa-Xqkz, Managing Your Hypertension. - Prescriptions for irbesartan 300 mg Oral tablet - take 1 tablet by ORAL route once daily; 20 tablet. Toprol XL 25 mg Oral Tablet - take 1 tablet by ORAL route once daily; 20 tablet. - Medication Reconciliation Form, Thank You Letter, Antibiotic Education, Prescription Opioid Use form. - Follow up: Private Physician; When: 2 - 3 days; Reason: Recheck today's complaints, Continuance of care, Re-evaluation by your physician. Follow up: Tyrone Sheffield; When: 2 - 3 days; Reason: Recheck today's complaints, Continuance of care, Re-evaluation by your physician. - Problem is new. - Symptoms have improved. Signatures: Dispatcher [employer] Fortino Vargas MD MD cha [place], Winsy Corrections: (The following items were deleted from the chart) 00:26 00:01 07/14/2019 00:01 Discharged to Home. Impression: Essential (primary) wh hypertension; Palpitations. Condition is Stable. Discharge Instructions: Hypertension, Palpitations, Hypertension, Qguw-ck-Kend, How to Take Your Blood Pressure, Ewmp-go-Aqsi, Aspirin and Your Heart, Palpitations, Lckk-yg-Dphn, Managing Your Hypertension. Prescriptions for irbesartan 300 mg Oral tablet - take 1 tablet by ORAL route once daily; 20 tablet, Toprol XL 25 mg Oral Tablet - take 1 tablet by ORAL route once daily; 20 tablet. and Forms are Medication Reconciliation Form, Thank You Letter, Antibiotic Education, Prescription Opioid Use. Follow up: Private Physician; When: 2 - 3 days; Reason: Recheck today's complaints, Continuance of care, Re-evaluation by your physician. Follow up: Tyrone Sheffield; When: 2 - 3 days; Reason: Recheck today's complaints, Continuance of care, Re-evaluation by your physician. Problem is new. Symptoms have improved. maral
[2019-07-14 00:12] LABS: Urine Blood NEGATIVE (NEG); Urine Glucose NEGATIVE (NEG); Urine Protein NEGATIVE (NEG); Urine Specific Gravity 1.015 (1.005-1.030); Urine pH 6.5 (5.0-7.0)
[2019-07-14] MEDS ORDERED: ASPIRIN 81 MG CHEWABLE TABLET ONE (00:19)
[2019-07-14 06:42] VITALS: TEMP 98
[2019-07-14 06:50] VITALS: BP 151/84; O2SAT 99
--- NOTE | 2019-07-14 07:54 | RAD REPORT ---
EXAM DESCRIPTION: Kavitha Single View07/13/2019 11:11 pm CLINICAL HISTORY: Cough COMPARISON: none FINDINGS: The lungs appear clear of acute infiltrate. The heart is normal size IMPRESSION: No acute abnormalities displayed If the patient's symptoms persist PA and lateral chest series would be recommended
--- NOTE | 2019-07-14 11:26 | EKG ---
Test Date: 2019-07-13 Test Time: 22:19:45 Drug Safety Associate: KELSEY MEASUREMENT RESULTS: Intervals: Rate: 70 LA: 154 QRSD: 116 QT: 414 QTc: 447 [place]: P: 72 LA: 154 QRS: -10 T: 62 INTERPRETIVE STATEMENTS: Normal sinus rhythm with sinus arrhythmia Right bundle branch block Anterior infarct, age undetermined Abnormal ECG No previous ECG available for comparison Electronically Signed On 07-14-19 11:23:57 ACCOUNT COLLECTOR by Tyrone Sheffield
== END 2019-07-14 00:26 | disposition home or self-care (01) ==
LOC: ER 22:07
DX: R00.2 Palpitations (principal); I10 Essential (primary) hypertension; I25.2 Old myocardial infarction
CPT/HCPCS: 93005; 87088; 85025; 87086; 80048; 36415; 83735; 85610; 80076; 84443; 81003; 84484; 84439; 83880; 71045; 96360; 99284; J7030

== ENCOUNTER 2019-11-13 14:51 | Emergency (ER) | payer OTHER ==
--- OUTSIDE RECORDS SUMMARY | 2019-11-13 14:53 | XMS REPORT ---
:1930 Author Organization [facility] t Address [address] [place] [address] Care Team Providers Name Role Phone Hilary Glover MD Attending Clinician CAROLE Attending Clinician Unavailable Payers Payer Name Policy Type Policy Number Effective Date Expiration Date S ource Problems Condition Condition Condition Status Onset Resolution Last Treating Co mments Source Name Details Category Date Date Treatment Clinician Date Hemangioma Hemangioma Problem Active [facility] [place] [facility] [place] [facility] Dysfunctio Dysfunctio Problem Active [facility] nivers n of [place] Physici ans Bilateral Bilateral Problem Active Uni vers temporoman temporoman it y of dibular dibular [place] joint pain joint pain Ph ysici ans Allergies, Adverse Reactions, Alerts Allergy Allergy Status Severity Reaction(s) Onset Inactive Treating Comm ents Source Name Type Date Date Clinician No Known DA Active U 2017-06 [facility] Allergie 2-20 [facility] s 00:00: e 00 [facility] [place] Medications This patient has no known medications. Procedures This patient has no known procedures. Encounters Start End Encounter Admission Attending Care Care Encounter Source Date/Time Date/Time Type Type Clinicians Facility Department ID 2019-02-09 2019-02-09 Office Matt Glover [facility] [id number] 09:42:46 11:03:25 Visit C Patty [id number] [place] [id number] Professio [id number] [facility] 044 [facility] 2018-08-20 2018-08-20 Appointmen REGAN LAM Otorhinolar [id number] [facility] 13:30:00 13:30:00 t; Gautam SHAW yngology - ity of [facility] Shaina SHAW. [facility] ci ans Results This patient has no known results.
[2019-11-13 15:51] LABS: Absolute Lymphocytes (CBC) 0.9 K/uL (0.7-4.9); Basophils % 0.9 % (0-1.3); MPV 7.9 fL (7.6-11.3); RBC Red Blood Cell Count 4.14 M/uL (3.86-4.86)
[2019-11-13 16:02] LABS: Protime INR 0.99
--- NOTE | 2019-11-13 16:05 | RAD REPORT ---
EXAM DESCRIPTION: CT - CTHCSPWOC - 11/13/2019 3:46 pm CLINICAL HISTORY: dizziness ;Numbness/tingling COMPARISON: No comparisons TECHNIQUE: Axial 5 mm thick images of the head were obtained. Axial 2 mm thick images of the cervic al spine were obtained with sagittal and coronal reconstruction images generated and reviewed. All CT scans are performed using dose optimization technique as appropriate and may include automated exposure control or mA/KV adjustment according to patient size. FINDINGS: No intracranial hemorrhage, mass, edema or acute intracranial finding. No acute cortical b ased infarction. No cortical edema or sulcal effacement. Atrophy and chronic ischemic changes are pre sent mild to moderate for age. Ventricles are in proportion to the volume loss. Arterial and physiolo gic calcifications are present. Mastoid air cells and paranasal sinuses are clear. No globe or orbit abnormality seen. Cervical bodies are normal in height. There is straightening of the usual cervical lordosis with slig ht retrolisthesis of C3 on C4 and C5 on C6. Advanced degenerative change with disc space narrowing no nafisa at C3-4, C4-5, C5-6 and C6-7. C4-5 level may be fused across the disc level from degenerative or congenital etiologies. Posterior elements appear at least partially fused as well. Advanced degenerat shreyas change present at the dens C1 level. There are large areas of degenerative cystic change or erosi on in the dens. There are multiple arthropathies they can cause this pattern. No spinal stenosis at t his level. Advanced facet joint degenerative change at C2-3 causes left foraminal encroachment. C3-4 central spinal stenosis to 7-8 mm present with significant bilateral bony foraminal encroachment. Adv anced facet degenerative change causes bilateral foraminal stenosis at C4-5. Canal is borderline sten otic. Severe endplate degenerative spurring changes at C5-6 cause severe central spinal stenosis to 6 mm with severe bilateral foraminal stenosis. Continued endplate spurring changes and ligamentous garfield cifications cause spinal stenosis to 5 mm at the superior C6 level. Mild foraminal encroachment at C6 -7. No acute vertebral body fracture. No pathologic process suspected. Central canal detail is inher ently limited. No paraspinal mass or hematoma. IMPRESSION: Atrophy and chronic ischemic changes are present as detailed on the CT head exam. No hem orrhage, edema or acute intracranial finding. Severe cervical spine degenerative changes are present with multiple levels showing critical central spinal stenosis and almost certain critical cord compression. Central canal detail is inherently limi nafisa. Extensive erosive change to the dens of C2. This is caused by multiple different arthropathies. No fracture or acute finding in the cervical spine.
[2019-11-13 16:10] LABS: ALT/SGPT 19 U/L (12-78); AST/SGOT 15 U/L (15-37); Albumin 3.4 g/dL (3.4-5.0); Alkaline Phosphatase 83 U/L (45-117); BUN Blood Urea Nitrogen 24 mg/dL (7-18); Bicarbonate 26 mmol/L (21-32); Bilirubin Direct < 0.1 mg/dL (0-0.2); Bilirubin Total 0.3 mg/dL (0.2-1.0); Glucose Level 96 mg/dL (74-106); Magnesium 2.5 mg/dL (1.8-2.4); NT PRO-BNP 64 pg/mL (<450); Potassium 4.2 mmol/L (3.5-5.1); Protein, Total 6.9 g/dL (6.4-8.2); Sodium Level 143 mmol/L (136-145); Troponin (Emerg Dept Use Only) < 0.02 ng/mL (0.0-0.045)
--- NOTE | 2019-11-13 17:22 | RAD REPORT ---
EXAM DESCRIPTION: MRI - C Spine Wo Cont - 11/13/2019 5:01 pm CLINICAL HISTORY: Severe canal stenosis COMPARISON: Head C Spine Mpr Wo Con dated 11/13/2019 TECHNIQUE: Sagittal T1-weighted, T2-weighted and T2-STIR sequences were obtained as well as T2 medic sequence. FINDINGS: Cervical bodies are normal in height. Scattered fatty marrow degenerative changes are pres ent. No acute or aggressive marrow process identifiable. No paraspinal mass. No cerebellar tonsillar ectopia. As seen on the CT study, numerous areas of erosive change are present in the dens. These are hypointe nse T1 and hyperintense T2 foci. There is significant thickening of the transverse ligament posterior to the dens. Spinal cord is flattened through this region with a central canal down to 6-[address] No co rd signal abnormality. This would be a pattern typical for rheumatoid arthritis. There are other arth ropathies that can give this appearance. C2-3 level: Disc bulge and endplate spurring changes are present. Posterior ligamentous thickening pr esent. Canal is reduced to 7-8 mm. Significant bony foraminal encroachment on the left from uncoverte bral joint hypertrophy and facet hypertrophy. No significant right foraminal stenosis seen. C3-4 level: Advanced disc space narrowing seen with posterior endplate spurring. Midline and right si de of the cord or flattened. Midline canal diameter is 7 mm. Significant bilateral foraminal stenosis from uncovertebral joint hypertrophy and left facet hypertrophy. Findings are worse on the left. C4-5 level: Loss of disc height with desiccation. This level is probably fused. Anterior subarachnoid space is attenuated by endplate hypertrophy. Spinal stenosis to 7- 8 mm is present with flattening o f the anterior cord. Moderate to moderately severe bilateral foraminal stenosis present from bony hyp ertrophy. Findings are slightly worse on the left. C5-6 level: Advanced disc and endplate degenerative changes are present. Bony hypertrophy causes zurdo re cord flattening. Midline canal is 5 mm. Severe bilateral bony foraminal encroachment present. C6-7 level: Disc bulge and endplate spurring partially attenuate the anterior subarachnoid space. Mid line canal is 8 mm. Mild bilateral foraminal encroachment changes are present slightly worse on the l eft. C7-T1 level: No significant findings. No expansile changes to the cord. IMPRESSION: Severe cervical spine degenerative changes are present similar to the CT findings. Multilevel spinal stenosis is present with critical spinal stenosis and cord flattening at C5-6. Advanced degenerative change to the C2 dens and transverse ligament as detailed. This is most commonl y from rheumatoid arthritis. Spinal cord is flattened at multiple levels. No cord signal abnormality identified. Significant multilevel foraminal stenosis. Findings are detailed at each level in the body of the rep ort.
--- NOTE | 2019-11-13 17:40 | RAD REPORT ---
EXAM DESCRIPTION: RAD - Chest Single View - 11/13/2019 4:43 pm CLINICAL HISTORY: DYSPNEA TECHNIQUE: AP portable chest image was obtained 11/13/2019 4:43 pm . FINDINGS: Lungs are clear. Heart and vasculature are normal. No measurable pleural effusion and no p neumothorax. No acute bone findings seen. Bilateral shoulder joint and AC joint degenerative changes are present similar to the June study. Thoracic spine degenerative changes are present. No acute a ortic findings suspected. IMPRESSION: No acute cardiopulmonary process. No significant change from June.
--- NOTE | 2019-11-13 18:40 | ER ---
Nurse's Notes [facility] Name: Talita Dean Age: 89 yrs Sex: Female : 1930 Arrival Date: 11/13/2019 Time: 14:54 Bed 4 Private MD: Diagnosis: Dizziness ;Spinal stenosis, cervical region;Cervical disc disorder with radiculopathy;Other spondylosis with myelopathy, cervical region Presentation: 11/12 15:02 Chief complaint: Patient states: hypotension and dizziness x 1 month BP 117/63. Risk sv Assessment: Do you want to hurt yourself or someone else? Patient reports no desire to harm self or others. Onset of symptoms was September 2019. 15:02 Method Of Arrival: Ambulatory sv 15:02 Acuity: ANNABEL 3 sv 15:04 Coronavirus screen: Proceed with normal triage. Patient denies a cough. Patient denies sv shortness of breath or difficulty breathing. Patient denies measured and/or subjective temperature greater than 100.4F prior to today's visit. Patient denies travel on a cruise ship or to a country the [facility] currently lists as an affected area. Patient denies contact with known and/or suspected case of COVID-19. Ebola Screen: No symptoms or risks identified at this time. Historical: - Allergies: 15:03 No Known Allergies; sv - Home Meds: 15:03 irbesartan 300 mg Oral tab 1 tab once daily [Active]; Aspirin Childrens 81 mg Oral chew sv 1 tab once daily [Active]; - PMHx: 15:03 Hypertension; Myocardial infarction; sv - PSHx: 15:03 Hysterectomy; sv - Immunization history:: Adult Immunizations up to date. - Social history:: Smoking status: Patient denies any tobacco usage or history of. Screenin:22 Abuse screen: Denies threats or abuse. Nutritional screening: No deficits noted. em Tuberculosis screening: No symptoms or risk factors identified. Fall Risk None identified. Assessment: 15:20 General: Appears in no apparent distress. comfortable, Behavior is calm, cooperative, em appropriate for age. Pain: Denies pain. Neuro: Level of Consciousness is awake, alert, obeys commands, Oriented to person, place, time, situation, Appropriate for age Reports dizziness, since 1 month when moving, not when sitting still. Cardiovascular: Denies chest pain, Capillary refill < 3 seconds Patient's skin is warm and dry. Respiratory: Airway is patent Respiratory effort is even, unlabored, Respiratory pattern is regular, symmetrical. GI: Abdomen is flat, Patient currently denies nausea, vomiting. Derm: Skin is intact, is fragile, is thin, Skin is pink, warm \T\ dry. Musculoskeletal: Capillary refill < 3 seconds, Range of motion: intact in all extremities. 16:20 Reassessment: Patient appears in no apparent distress at this time. Patient and/or em family updated on plan of care and expected duration. Pain level reassessed. Patient is alert, oriented x 3, equal unlabored respirations, skin warm/dry/pink. 17:30 Reassessment: Patient appears in no apparent distress at this time. Patient and/or em family updated on plan of care and expected duration. Pain level reassessed. Patient is alert, oriented x 3, equal unlabored respirations, skin warm/dry/pink. Vital Signs: 15:04 BP 119 / 63; Pulse 69; Resp 16; Temp 98.4; Pulse Ox 99% ; Weight 61.23 kg; Height 4 ft. sv 11 in. (149.86 cm); Pain 0/10; 16:05 BP 156 / 76 Supine; Pulse 65; lt1 16:05 BP 157 / 76 Sitting; Pulse 64; lt1 16:05 BP 153 / 77 Standing; Pulse 77; lt1 17:00 BP 148 / 61; Pulse 59; Resp 18; Pulse Ox 97% on R/A; em 15:04 Body Mass Index 27.26 (61.23 kg, 149.86 cm) sv ED Course: 14:54 Patient arrived in ED. fj1 15:03 Triage completed. sv 15:04 Arm band placed on. sv 15:10 Yuan Maria PA is PHCP. jr8 15:10 Levy Mercer MD is Attending Physician. jr8 15:14 Rey Elizabeth, RICKEY is Primary Nurse. em 15:22 Patient has correct armband on for positive identification. Placed in gown. Bed in low em position. Call light in reach. Warm blanket given. 15:40 Initial lab(s) drawn, by me, sent to lab. Inserted saline lock: 20 gauge in left em antecubital area, using aseptic technique. Blood collected. 15:48 CT Head C Spine In Process Unspecified. EDMS 16:43 XRAY Chest (1 view) In Process Unspecified. EDMS 16:51 C Spine Wo Cont In Process Unspecified. EDMS 18:57 No provider procedures requiring assistance completed. IV discontinued, intact, em bleeding controlled, No redness/swelling at site. Pressure dressing applied. Administered Medications: No medications were administered Outcome: 18:39 Discharge ordered by MD. alexandra 18:57 Discharged to home ambulatory. em 18:57 Condition: good 18:57 Discharge instructions given to patient, Instructed on discharge instructions, follow up and referral plans. Demonstrated understanding of instructions, follow-up care. 18:58 Patient left the ED. em Signatures: Dispatcher [employer] Heaven Matos RN RN Rey Elizabeth RN RN em Yuan Maria, BRI GREGORY jr8 Tomeka Chadwick lt1 Reid Gutierrez fj1 Corrections: (The following items were deleted from the chart) 15:06 15:04 61.23 kg; Height 4 ft. 11 in.; BMI: 27.2; Pain 0/10; [facility]
--- NOTE | 2019-11-13 18:41 | EDPHYS ---
Physician Documentation [facility] Name: Talita Dean Age: 89 yrs Sex: Female : 1930 Arrival Date: 11/13/2019 Time: 14:54 Bed 4 Private MD: ED Physician Levy Mercer HPI: 11/12 16:54 This 89 yrs old Female presents to ER via Ambulatory with complaints of jr8 dizziness. 16:54 The patient's problem is reported as Dizziness . Onset: The symptoms/episode jr8 began/occurred gradually, 1 month(s) ago, and became worse today. Duration: The episode is continuous. The symptoms are alleviated by nothing. The symptoms are aggravated by nothing. Associated signs and symptoms: Pertinent positives: lightheadedness, numbness. Severity of symptoms: At their worst the symptoms were mild in the emergency department the symptoms have improved. Patient's baseline: Neuro: alert and fully oriented, Motor: no deficits, Ambulation: walks without assistance, Speech: normal. The patient has not experienced similar symptoms in the past. The patient has been recently seen by a physician:. Patient stated that she has had lightheadedness for over a month. Stated that she was evaluated by cardiology and without acute findings. Stated that she will also had left arm numbness and temporary paralysis in hand and arm. Stated that she came to ED today because normally the lightheadedness with decrease throughout the day but today has been persistent . Historical: - Allergies: 15:03 No Known Allergies; sv - Home Meds: 15:03 irbesartan 300 mg Oral tab 1 tab once daily [Active]; Aspirin Childrens 81 mg Oral chew sv 1 tab once daily [Active]; - PMHx: 15:03 Hypertension; Myocardial infarction; sv - PSHx: 15:03 Hysterectomy; sv - Immunization history:: Adult Immunizations up to date. - Social history:: Smoking status: Patient denies any tobacco usage or history of. ROS: 16:54 Eyes: Negative for injury, pain, redness, and discharge, ENT: Negative for injury, jr8 pain, and discharge, Neck: Negative for injury, pain, and swelling, Cardiovascular: Negative for chest pain, palpitations, and edema, Respiratory: Negative for shortness of breath, cough, wheezing, and pleuritic chest pain, Abdomen/GI: Negative for abdominal pain, nausea, vomiting, diarrhea, and constipation, Back: Negative for injury and pain, MS/Extremity: Negative for injury and deformity, Skin: Negative for injury, rash, and discoloration. 16:54 Neuro: Positive for dizziness, numbness. Exam: 16:54 Radiologist reports: Negative head. Substantial cervical changes noted jr 16:54 Head/Face: Normocephalic, atraumatic. Eyes: Pupils equal round and reactive to light, extra-ocular motions intact. Lids and lashes normal. Conjunctiva and sclera are non-icteric and not injected. Cornea within normal limits. Periorbital areas with no swelling, redness, or edema. ENT: Nares patent. No nasal discharge, no septal abnormalities noted. Tympanic membranes are normal and external auditory canals are clear. Oropharynx with no redness, swelling, or masses, exudates, or evidence of obstruction, uvula midline. Mucous membranes moist. Neck: Trachea midline, no thyromegaly or masses palpated, and no cervical lymphadenopathy. Supple, full range of motion without nuchal rigidity, or vertebral point tenderness. No Meningismus. Cardiovascular: Regular rate and rhythm with a normal S1 and S2. No gallops, murmurs, or rubs. Normal PMI, no JVD. No pulse deficits. Respiratory: Lungs have equal breath sounds bilaterally, clear to auscultation and percussion. No rales, rhonchi or wheezes noted. No increased work of breathing, no retractions or nasal flaring. Abdomen/GI: Soft, non-tender, with normal bowel sounds. No distension or tympany. No guarding or rebound. No evidence of tenderness throughout. Back: No spinal tenderness. No costovertebral tenderness. Full range of motion. Skin: Warm, dry with normal turgor. Normal color with no rashes, no lesions, and no evidence of cellulitis. MS/ Extremity: Pulses equal, no cyanosis. Neurovascular intact. Full, normal range of motion. Neuro: Awake and alert, GCS 15, oriented to person, place, time, and situation. Cranial nerves II-XII grossly intact. Motor strength 5/5 in all extremities. Sensory grossly intact. Cerebellar exam normal. Normal gait. 17:03 ECG was reviewed by the Attending Physician. jr8 Vital Signs: 15:04 BP 119 / 63; Pulse 69; Resp 16; Temp 98.4; Pulse Ox 99% ; Weight 61.23 kg; Height 4 ft. sv 11 in. (149.86 cm); Pain 0/10; 16:05 BP 156 / 76 Supine; Pulse 65; lt1 16:05 BP 157 / 76 Sitting; Pulse 64; lt1 16:05 BP 153 / 77 Standing; Pulse 77; lt1 17:00 BP 148 / 61; Pulse 59; Resp 18; Pulse Ox 97% on R/A; em 15:04 Body Mass Index 27.26 (61.23 kg, 149.86 cm) sv MDM: 15:11 Patient medically screened. 8 18:36 Data reviewed: vital signs, nurses notes, lab test result(s), EKG, radiologic studies, jr CT scan, MRI, plain films. Data interpreted: Pulse oximetry: on room air is 97 %. Interpretation: normal. Counseling: I had a detailed discussion with the patient and/or guardian regarding: the historical points, exam findings, and any diagnostic results supporting the discharge/admit diagnosis, lab results, radiology results, the need for outpatient follow up, a orthopedic surgeon, to return to the emergency department if symptoms worsen or persist or if there are any questions or concerns that arise at home. ED course: Consulted Dr. Bro neurosurgery at [facility]. Stated that at this time based on presentation and findings, that it would be safe to go home with close f/u. Is arranging patient to be seen by ortho spine this week. Patient is good with this . 11/12 15:29 Order name: Basic Metabolic Panel; Complete Time: 16:14 11/12 15:29 Order name: CBC with Diff; Complete Time: 16:10 11/12 15:29 Order name: LFT's; Complete Time: 16:14 11/12 15:29 Order name: Magnesium; Complete Time: 16:14 11/12 15:29 Order name: NT PRO-BNP; Complete Time: 16:14 11/12 15:29 Order name: PT-INR; Complete Time: 16:10 11/12 15:29 Order name: Troponin (emerg Dept Use Only); Complete Time: 16:14 11/12 15:29 Order name: XRAY Chest (1 view); Complete Time: 18:01 jr8 11/12 15:29 Order name: EKG; Complete Time: 15:33 jr8 11/12 15:29 Order name: Cardiac monitoring; Complete Time: 15:31 jr8 11/12 15:29 Order name: EKG - Nurse/Tech; Complete Time: 16:06 jr8 11/12 15:29 Order name: IV Saline Lock; Complete Time: 15:56 jr8 11/12 15:29 Order name: CT Head C Spine; Complete Time: 16:10 jr8 11/12 16:24 Order name: C Spine Wo Cont; Complete Time: 17:36 EDMS 11/12 15:29 Order name: Labs collected and sent; Complete Time: 15:56 jr8 11/12 15:29 Order name: O2 Per Protocol; Complete Time: 15: jr8 11/12 15:29 Order name: O2 Sat Monitoring; Complete Time: 15: jr8 11/12 15:30 Order name: Orthostatics; Complete Time: 16:06 EC:03 Rate is 64 beats/min. Rhythm is regular, Normal Sinus Rhythm. QRS [place] is Normal. CT jr8 interval is normal at 162 msec. QRS interval is normal at 118 msec. QT interval is normal at 460 msec. No Q waves. T waves are Inverted in lead III. No ST changes noted. Clinical impression: NSR w/ Non-specific ST/T Changes and No evidence of ischemia. Interpreted by me. Reviewed by me. Administered Medications: No medications were administered Disposition: 11/13/19 18:39 Discharged to Home. Impression: Dizziness , Spinal stenosis, cervical region, Cervical disc disorder with radiculopathy, Other spondylosis with myelopathy, cervical region. - Condition is Stable. - Discharge Instructions: Cervical Radiculopathy. - Medication Reconciliation Form, Thank You Letter, Antibiotic Education, Prescription Opioid Use form. - Follow up: Private Physician; When: 2 - 3 days; Reason: Recheck today's complaints, Continuance of care, Re-evaluation by your physician. - Problem is new. - Symptoms are unchanged. - Notes: To call for f/u with [facility] ([phone]) Addendum: 11/14/2019 19:41 Co-signature as Attending Physician, Levy Mercer MD. m h7 Signatures: Dispatcher [employer] Heaven Matos RN RN Rey Elizabeth RN RN Yuan Del Rio PA PA jr8 Levy Mercer MD MD [email or web address] Corrections: (The following items were deleted from the chart) 11/12 18:58 18:39 11/13/2019 18:39 Discharged to Home. Impression: Dizziness ; Spinal stenosis, em cervical region; Cervical disc disorder with radiculopathy; Other spondylosis with myelopathy, cervical region. Condition is Stable. Forms are Medication Reconciliation Form, Thank You Letter, Antibiotic Education, Prescription Opioid Use. Follow up: Private Physician; When: 2 - 3 days; Reason: Recheck today's complaints, Continuance of care, Re-evaluation by your physician. Problem is new. Symptoms are unchanged. jr8
[2019-11-13 19:06] VITALS: TEMP 98.4
[2019-11-13 19:09] VITALS: BP 148/61; O2SAT 97
--- NOTE | 2019-11-14 08:06 | EKG ---
Test Date: 2019-11-13 Test Time: 15:58:29 Financial Wellness Coach: BIPIN MEASUREMENT RESULTS: Intervals: Rate: 64 TN: 162 QRSD: 118 QT: 446 QTc: 460 [place]: P: 63 TN: 162 QRS: -24 T: 31 INTERPRETIVE STATEMENTS: Normal sinus rhythm Low voltage QRS Right bundle branch block Cannot rule out Anterior infarct, age undetermined Abnormal ECG Compared to ECG 07/13/2019 22:19:45 Low QRS voltage now present Sinus arrhythmia no longer present Myocardial infarct finding still present Electronically Signed On 11-14-19 08:04:10 CDT by Tyrone Sheffield
== END 2019-11-13 18:58 | disposition home or self-care (01) ==
LOC: ER 14:51
DX: M48.02 Spinal stenosis, cervical region (principal); M50.10 Cervical disc disorder with radiculopathy, unspecified cervical region; M47.12 Other spondylosis with myelopathy, cervical region; I10 Essential (primary) hypertension; I25.2 Old myocardial infarction; Z79.82 Long term (current) use of aspirin
CPT/HCPCS: 36415; 70450; 71045; 72125; 72141; 80048; 80076; 83735; 83880; 84484; 85025; 85610; 93005; 99284

== ENCOUNTER 2020-01-03 15:38 | Emergency (ER) | payer OTHER ==
--- OUTSIDE RECORDS SUMMARY | 2020-01-03 15:40 | XMS REPORT | Continuity of Care Document ---
:1930 Author Organization [facility] t Address [address] [place] [address] Care Team Providers Name Role Phone Hilary [...] DA Active U 2017-06 [facility] 2-20 [facility] s 00:00: e 00 [facility] Medications This patient has no known medications. Procedures This patient has no known procedures. Encounters Start End Encounter Admission Attending Care Care Encounter Source Date/Time Date/Time Type Type Clinicians Facility Department ID 2019-02-09 2019-02-09 Office Matt Glover [facility] [id number] 09:42:46 11:03:25 Visit C Patty [id number] [facility] [id number] Professio [phone] [facility] 044 [facility] 2018-08-20 2018-08-20 Appointmen [facility] [id number] [employer] 13:30:00 13:30:00 t; Gautam SHAW yngology - ity of [facility] Gautam SHAW [facility] ans Results This patient has no known results.
--- NOTE | 2020-01-03 17:20 | ER ---
Nurse's Notes [facility] Name: Talita Dean Age: 89 yrs Sex: Female : 1930 Arrival Date: 01/03/2020 Time: 15:41 Bed Waiting Private MD: Diagnosis: Presentation: 01/02 16:11 Chief complaint: Patient states: High BP since today. HBP at 177 systolic. No complains ca1 at this time. Coronavirus screen: Proceed with normal triage. Patient denies a cough. Patient denies shortness of breath or difficulty breathing. Patient denies measured and/or subjective temperature greater than 100.4F prior to today's visit. Patient denies travel on a cruise ship or to a country the [facility] currently lists as an affected area. Patient denies contact with known and/or suspected case of COVID-19. Ebola Screen: Patient negative for fever greater than or equal to 101.5 degrees Fahrenheit, and additional compatible Ebola Virus Disease symptoms Patient denies exposure to infectious person. Patient denies travel to an Ebola-affected area in the 21 days before illness onset. No symptoms or risks identified at this time. Initial Sepsis Screen: Does the patient meet any 2 criteria? No. Patient's initial sepsis screen is negative. Does the patient have a suspected source of infection? No. Patient's initial sepsis screen is negative. Risk Assessment: Do you want to hurt yourself or someone else? Patient reports no desire to harm self or others. Onset of symptoms was January 03, 2020. 16:11 Method Of Arrival: Ambulatory ca1 16:11 Acuity: ANNABEL 3 ca1 Historical: - Allergies: 16:15 No Known Allergies; ca1 - Home Meds: 16:15 irbesartan 300 mg Oral tab 1 tab once daily [Active]; Aspirin Childrens 81 mg Oral chew ca1 1 tab once daily [Active]; - PMHx: 16:15 Hypertension; Myocardial infarction; ca1 - PSHx: 16:15 Hysterectomy; ca1 - Immunization history:: Adult Immunizations up to date. - Social history:: Smoking status: Patient denies any tobacco usage or history of. Vital Signs: 16:11 BP 170 / 81; Pulse 71; Resp 15 S; Temp 98(TE); Pulse Ox 99% on R/A; Weight 58.97 kg ca1 (R); Height 5 ft. 0 in. (152.40 cm) (R); Pain 0/10; 16:11 Body Mass Index 25.39 (58.97 kg, 152.40 cm) ca1 ED Course: 15:41 Patient arrived in ED. ag5 16:14 Triage completed. ca1 16:15 Arm band placed on right wrist. ca1 Administered Medications: No medications were administered Outcome: 17:20 Patient left the ED. ca1 Signatures: Willa Betancourt RN RN ca1 Mino Martini [facility]
[2020-01-03 17:45] VITALS: BP 170/81; TEMP 98; O2SAT 99
== END 2020-01-03 17:20 | disposition left against medical advice (07) ==
LOC: ER 15:38
DX: Z53.21 Procedure and treatment not carried out due to patient leaving prior to being seen by health care provider (principal)
CPT/HCPCS: 99281